=== PATIENT | female | born 1950 | race Caucasian/White ===

== ENCOUNTER 2017-05-28 14:16 | Outpatient (CLI) | payer MEDICARE, OTHER ==
--- NOTE | 2017-05-28 16:08 | XRAY Report ---
LEFT HIP AND PELVIS: 05/28/2017 CLINICAL INDICATION: Left hip pain. FINDINGS: Frontal view of the hips and pelvis and frogleg lateral view of the left hip demonstrate no evidence of acute fracture or dislocation. Mild osteoarthritis is present. No radiopaque foreign body is seen in the soft tissues. IMPRESSION: MILD LEFT HIP OSTEOARTHRITIS. TD: 05/28/2017 16:07
== END 2017-05-28 14:17 | disposition home or self-care (01) ==
LOC: DI 14:16
PROVIDERS: ATTEND Internal Medicine
DX: M16.12 Unilateral primary osteoarthritis, left hip (principal)